=== PATIENT | female | born 1990 | race Caucasian/White ===

== ENCOUNTER 2017-07-08 08:50 | Day surgery (SDC) | payer OTHER ==
[~2017-07-08] VITALS: Ht 162.6 cm; Wt 102.5 kg
[~2017-07-08 08:50] MED LIST: CRUTCH1 EACH; DASETTA1 EACH PO; IBUPROFEN600 MG PO; NORCO 5-325 TA1 EACH PO; PROVENTIL HFA6.7 GM INH; SERTRALINE HCL100 MG PO; TYLENOL WITH C1 EACH PO
[2017-07-08] MEDS ORDERED: NORCO 10-325 T1 EACH PO (14:04)
--- NOTE | 2017-07-09 10:06 | OR ---
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 PROCEDURE: Excision of nonunion fragment off the lateral talus followed by excision of loose bodies in the subtalar joint, followed by reconstruction of the ATF and the CCF and an internal brace. ANESTHESIA: General. SPECIMENS AND COMPLICATIONS: There were no specimens or complications. TOURNIQUET TIME: About 45 minutes. WHAT WAS DONE: The patient was taken to the operating room. After anesthesia was induced and the airway secured, the patient was positioned, prepped, and draped in a routine sterile fashion. The leg was exsanguinated with elevation. Pneumatic tourniquet about the thigh was inflated to 300 mmHg pressure. We then made a curvilinear incision over the distal fibula extending distally slightly anterior to the course of the peroneal tendons. Skin was divided sharply. Subcutaneous tissue was bluntly spread to preserve branches of the SPN. We then carried the dissection down to the subtalar joint. A small portion of the capsule of the subtalar joint was elevated and the large unstable lateral talar process fracture was visible. There was a moderate synovitis in the lateral subtalar joint. We used a small [place] elevator to elevate the ununited fragment and resected it without difficulty. There were several additional loose bodies in the subtalar joint that were removed under direct vision. We then extended the dissection slightly cephalad, slightly anteriorly exposing a portion of the neck of the talus. We actually had an excellent Electronically Signed By: RAZIA MENDOZA MD 07/09/17 1006 PATIENT NAME: PARKER GIL OPERATIVE REPORT DATE OF : 89 PHYSICIAN: RAZIA MENDOZA MD REPORT #: [id number] REPORT IS CONFIDENTIAL AND NOT TO BE RELEASED WITHOUT AUTHORIZATION [facility] [address] [place], [place] [address] Signed view of the ATF. Just at about the insertion of the ATF onto the calcaneus, we drilled a hole for the internal brace, tapped it, and then put the talar side of the internal brace. We then held the foot in a corrected position and secured the internal brace into the fibula with a second SwiveLock. The redundant FiberTape was then cut off. At this point, we had a full range of motion of the ankle. There was no abrasion on the talus and we had restored excellent stability. We then elevated the periosteum off the fibula and repaired the ATF in a [id number] technique. We also used this to imbricate the CCF and then closed the lateral subtalar joint. The wound was gently irrigated and closed in a standard fashion. A sterile dressing applied. The patient was awakened in recovery room where she arrived in stable condition. Counts were correct and antibiotic protocols were followed. Razia Mendoza MD WFB/MODL /[id number] Electronically Signed By: RAZIA MENDOZA MD 07/09/17 1006 PATIENT NAME: PARKER GIL OPERATIVE REPORT DATE OF : 89 PHYSICIAN: RAZIA MENDOZA MD REPORT #: [id number] REPORT IS CONFIDENTIAL AND NOT TO BE RELEASED WITHOUT AUTHORIZATION
== END 2017-07-08 15:00 | disposition home or self-care (01) ==
LOC: DS 08:50
PROVIDERS: Orthopaedic Surgery
PROC: 0SBJ0ZZ Excision of Left Tarsal Joint, Open Approach (ICD-10-PCS; 2017-07-08)
PROC: 0MUR0JZ Supplement Left Ankle Bursa and Ligament with Synthetic Substitute, Open Approach (ICD-10-PCS; principal; 2017-07-08 09:45)
PROC: 0SBG0ZZ Excision of Left Ankle Joint, Open Approach (ICD-10-PCS; 2017-07-08 09:45)
DX: M25.372 Other instability, left ankle (principal); S92.142A Displaced dome fracture of left talus, initial encounter for closed fracture; F32.9 Major depressive disorder, single episode, unspecified; Z79.899 Other long term (current) drug therapy
CPT/HCPCS: 01470; 64445; 76942; J0330; J0690; J1100; J1885; J2250; J2270; J2405; J2704; J2765; J3010; J7120; L4386